=== PATIENT | male | born 1985 ===

== ENCOUNTER → 2018-08-23 | Outpatient (REF) ==
--- NOTE | 2018-08-23 12:39 | REP ---
RIGHT HAND SERIES: Four views. HISTORY: Degenerative disease. No comparison imaging. 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 There is a moderate ulnar deviation deformity at the PIP joint. Advanced erosive changes are seen on both sides of the PIP joint and there is diffuse soft tissue swelling. 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 There are lesser arthropathy changes in the DIP joint with narrowing of the joint space and bony hypertrophy in the long finger. There is mild osteoarthritic narrowing and spurring at the 1st MCP and 1st FDC articulations. Overall mineralization pattern is normal. Mild spurring is seen at the dorsal aspect of the PIP joint of the ring finger. 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 Lesser osteoarthritic changes are noted at several other joints. Electronically Signed by Keegan Andre MD 08/23/2018 01:43 P
--- NOTE | 2018-08-23 12:41 | REP ---
PARTIAL LUMBAR SPINE SERIES: Three views. HISTORY: Degenerative disc disease. FINDINGS: There is evidence of bilateral L5 pars defects with a grade 1 L5-S1 8 mm spondylolisthesis. Pedicles and posterior elements are otherwise intact. Vertebral body heights are preserved. There is minimal disc space narrowing at L4-5. Psoas margins are symmetric. Sacrum and SI joints are intact. IMPRESSION: Bilateral pars interarticularis defects at L5 with grade 1, 8 mm, L5 S1 spondylolisthesis. Degenerative disc changes are seen at L4-5 and L5-S1, mild in degree. Electronically Signed by Keegan Andre MD 08/23/2018 01:44 P
== END ==
LOC: M SMT 09:43
PROVIDERS: ATTEND Internal Medicine
DX: Z02.71 Encounter for disability determination (principal)